=== PATIENT | female | born 1940 | race Native Hawaiian/Other Pacific Islander ===

== ENCOUNTER 2018-10-12 10:00 | Inpatient (IN) | payer OTHER ==
[2018-10-12] VITALS (19 sets, daily range): BP systolic 93–125; BP diastolic 34–51; TEMP 97.5–98.9; Ht 157.5 cm; Wt 36.5 kg
[~2018-10-12] VITALS: Ht 157.5 cm; Wt 36.5 kg
[~2018-10-12 10:00] MED LIST: DIVA500T2 PO; LORA0.5T17 PO; MEGESTROL625 MG/5 M PO; POLY GLYCOL3350 M1 PO; RANITIDINE 150150 MG PO; REMERON30 MG PO; ZIPR20CA PO; ZIPR20IN IM
[2018-10-12 11:58] LABS: PLATELET COUNT 54 K/uL (152-353)
[2018-10-12 12:22] LABS: POTASSIUM 4.5 mmol/L (3.6-5.2)
[2018-10-12 12:36] LABS: PARTIAL THROMBOPLASTIN TIME 20.4 SECONDS (24.5-33.6)
[2018-10-12] MEDS ORDERED: MIRTAZAPINE7.5 MG PO (17:40)
[2018-10-12] MEDS ORDERED: DONE5TAB PO (17:41)
[2018-10-12] MEDS ORDERED: ESCITALOPRAM5 MG PO (17:42)
[2018-10-12] MEDS ORDERED: CYAN100010 IM (17:44)
[2018-10-12] MEDS ORDERED: OXCARBAZEPIN150 MG PO (17:45)
[2018-10-12] MEDS ORDERED: MEMA5TAB PO (17:47)
[2018-10-12] MEDS ORDERED: RISP1TAB PO (17:48)
[2018-10-12] MEDS ORDERED: RISP0.25 PO (17:48)
[2018-10-12] MEDS ORDERED: MAGNSUS68 PO (17:50)
[2018-10-12] MEDS ORDERED: TYLENOL325 MG PO (17:51)
[2018-10-12] MEDS ORDERED: OLANZAPINE10 M3 IM (17:56)
[2018-10-12] MEDS ORDERED: LORA2INJ21 INJ (17:58)
[2018-10-13] VITALS (23 sets, daily range): BP systolic 86–137; BP diastolic 29–69; TEMP 98.3–99.3
[2018-10-13 04:40] LABS: PLATELET COUNT 155 K/uL (152-353)
[2018-10-13 05:13] LABS: POTASSIUM 3.8 mmol/L (3.6-5.2)
[2018-10-13 10:27] LABS: PLATELET COUNT 144 K/uL (152-353)
[2018-10-14] VITALS (9 sets, daily range): BP systolic 128–160; BP diastolic 62–84; TEMP 98.3–98.4
[2018-10-14 05:43] LABS: PLATELET COUNT 137 K/uL (152-353)
[2018-10-14 06:07] LABS: POTASSIUM 4.4 mmol/L (3.6-5.2)
[2018-10-15] VITALS: BP 108/42
[2018-10-15 07:42] VITALS: BP 114/51; TEMP 97.9
== END 2018-10-15 10:35 | disposition other institution (70) | DRG 378 ==
LOC: ICU 10:00
PROVIDERS: Family Medicine; ADMIT Internal Medicine
PROC: 30233N1 Transfusion of Nonautologous Red Blood Cells into Peripheral Vein, Percutaneous Approach (ICD-10-PCS; principal; 2018-10-13)
DX: K92.2 Gastrointestinal hemorrhage, unspecified (principal); F02.81 Dementia in other diseases classified elsewhere, unspecified severity, with behavioral disturbance; N39.0 Urinary tract infection, site not specified; E46 Unspecified protein-calorie malnutrition; G30.8 Other Alzheimer's disease; F60.3 Borderline personality disorder; I95.89 Other hypotension; D50.0 Iron deficiency anemia secondary to blood loss (chronic); F25.1 Schizoaffective disorder, depressive type; I10 Essential (primary) hypertension; E78.49 Other hyperlipidemia; Z86.73 Personal history of transient ischemic attack (TIA), and cerebral infarction without residual deficits; Z91.19 Patient's noncompliance with other medical treatment and regimen; R62.7 Adult failure to thrive; M54.89 Other dorsalgia
CPT/HCPCS: 36415; 80053; 83880; 85027; 85610; 85730; 86850; 86900; 86901; 86922; J1200; J1630; J2060; J3486; J3490; P9016